=== PATIENT | female | born 1960 | race Two or more races ===

== ENCOUNTER 2020-02-12 00:10 | Emergency (ER) | payer OTHER ==
[~2020-02-12] VITALS: Ht 165.1 cm; Wt 95.3 kg
[2020-02-12 00:22] VITALS: BP 159/97
--- NOTE | 2020-02-12 00:56 | NUR ---
Patient discharged to home in stable condition. Written and verbal after care instructions given. Patient verbalizes understanding of instruction.
== END 2020-02-12 00:58 | disposition home or self-care (01) ==
LOC: ER 00:10
DX: S00.11XA Contusion of right eyelid and periocular area, initial encounter (principal); G89.18 Other acute postprocedural pain; I10 Essential (primary) hypertension; Z98.890 Other specified postprocedural states; Z88.0 Allergy status to penicillin; Z60.2 Problems related to living alone; X58.XXXA Exposure to other specified factors, initial encounter; Y93.89 Activity, other specified; Y92.89 Other specified places as the place of occurrence of the external cause; Y99.8 Other external cause status